=== PATIENT | female | born 1970 | race Caucasian/White ===

== ENCOUNTER 2016-04-06 14:25 | Emergency (ER) | payer OTHER ==
[2016-04-06] MEDS ORDERED: IOPAMIDOL 370 (76%) 100 ML VIAL IV ONE (14:26)
[2016-04-06] MEDS ORDERED: ACETAMINOPHEN 325 MG TABLET ONE (15:00)
--- NOTE | 2016-04-06 17:13 | CT ---
CHEST CTA HISTORY: Dyspnea, elevated d-dimer. TECHNIQUE: Following the administration of 80 mL Isovue-370 intravenous contrast, contiguous axial images were acquired from the thoracic inlet to the diaphragmatic hiatus for CT pulmonary angiography. 3-D imaging was not performed. FINDINGS: PULMONARY ARTERIAL TREE: Technically adequate enhancement: No dominant filling defects. THORACIC AORTA: Normal caliber. No evidence of dissection. LUNGS: Mixed bronchiolar/airspace abnormality most notable at the left lower lobe, suspicious for early pneumonia. Atypical infection is possible. 4 mm nodule of the right lower lobe, image 75. 8 mm nodule, right lower lobe, image 61. 2 mm nodule, right upper lobe, image 40. Bronchiolitis could have a similar appearance. LANIE AND MEDIASTINUM: Subcarinal lymph node measures 1.4 cm in width. Left hilar lymph node measures 10 mm in width. AXILLAE: No grossly enlarged lymph nodes. UPPER ABDOMEN:No gross mass effect. OSSEOUS STRUCTURES: No grossly destructive lesions. IMPRESSION: 1. No CTA evidence of proximal order pulmonary embolus. 2. Moderately extensive bronchiolar/airspace abnormality worrisome for early pneumonia, most notable at the left lower lobe. 3. Reactive adenopathy is noted. No pleural effusion. 4. Pulmonary nodules measuring up to 8 mm in size. Recommend [address] assessment. Results were electronically transmitted to the electronic medical record at 04/06/2016 at 1709 hours.
[2016-04-06] MEDS ORDERED: AMOX 875 MG/CLAV 125 MG 1 EACH TABLET ONE (17:46)
[2016-04-06] MEDS ORDERED: DOXYCYCLINE HYCLATE 100 MG TABLET ONE (17:47)
== END 2016-04-06 18:00 | disposition home or self-care (01) ==
LOC: ED 14:25
DX: J18.9 Pneumonia, unspecified organism (principal); I49.9 Cardiac arrhythmia, unspecified; I49.3 Ventricular premature depolarization; J45.909 Unspecified asthma, uncomplicated; Z87.891 Personal history of nicotine dependence; Z79.1 Long term (current) use of non-steroidal anti-inflammatories (NSAID); Z79.2 Long term (current) use of antibiotics; Z79.891 Long term (current) use of opiate analgesic; Z79.51 Long term (current) use of inhaled steroids; Z79.899 Other long term (current) drug therapy
CPT/HCPCS: 85379; 84703; 71275; 99284; 36415; 99283; A9270 ×3; Q9967